=== PATIENT | female | born 1975 | race Caucasian/White ===

== ENCOUNTER 2016-04-28 13:22 | Inpatient (IN) | payer MEDICAID ==
[~2016-04-28] VITALS: Ht 154.9 cm; Wt 51.3 kg
[~2016-04-28 13:22] MED LIST: ATOR10TA PO; AZIT500T5 PO; FAMO20TA41 PO; LAM25 PO; P20 PO; PHEN100C4 PO
[2016-04-28] MEDS ORDERED: LORAZEPAM 2MG/ML CPJ ONE (13:33)
[2016-04-28] MEDS ORDERED: LORAZEPAM 2MG/ML CPJ IV ONE ×3 (14:15→17:00)
[2016-04-28 14:37] LABS: BASOPHILS % 0.6 % (0.0-2.0); EOSINOPHILS % 2.1 % (0.0-5.0); HEMATOCRIT. 33.2 % (36.0-48.0); LYMPHOCYTES % 17.5 % (20.0-50.0); MEAN CORPUSCULAR HEMOGLOBIN 29.3 pg (28.0-32.0); MEAN CORPUSCULAR HGB CONC 33.1 g/dL (31.0-37.0); MEAN CORPUSCULAR VOLUME 88.6 fL (81.0-99.0); MEAN PLATELET VOLUME 8.6 fl (7.4-10.4); NEUTROPHILS % 72.8 % (40.0-76.0); PLATELET 210 x1000/uL (130-400); RED BLOOD CELL COUNT 3.75 mill/uL (4.2-5.4); RED CELL DISTRIBUTION WIDTH 14.2 % (11.6-14.6); WHITE BLOOD COUNT 9.5 x1000/uL (4.5-11.0)
[2016-04-28 14:38] LABS: CHLORIDE 110 mEq/L (98-107)
[2016-04-28 14:47] LABS: ALANINE AMINOTRANSFERASE 22 IU/L (13-61); ALBUMIN 3.5 g/dL (3.4-5.0); ANION GAP 11; CARBON DIOXIDE 25 mEq/L (21-32); ETHANOL BLOOD < 10 mg/dL; INDEX HEMOLYSI 1 (1-3); INDEX ICTERIC 1 (1-4); INDEX LIPEMIC 1 (1-3); UREA NITROGEN BLOOD 13 mg/dL (7-21); eGFR > 60 mL/min (>60)
[2016-04-28 14:48] LABS: PHENYTOIN < 0.4 ug/mL (10-20)
[2016-04-28 16:43] LABS: CLARITY URINE CLEAR (CLEAR); COLOR URINE YELLOW (YELLOW); GLUCOSE URINE NEGATIVE (NEGATIVE); KETONES URINE NEGATIVE (NEGATIVE); LEUKOCYTE ESTERASE URINE NEGATIVE (NEGATIVE); NITRITE URINE NEGATIVE (NEGATIVE); OCCULT BLOOD URINE NEGATIVE (NEGATIVE); PROTEIN URINE NEGATIVE (NEGATIVE); UROBILINOGEN URINE 0.2 E.U./dL (0.2-1.0)
[2016-04-28] MEDS ORDERED: LEVETIRACETAM 500MG PREMIX 100 ML IV ONE ×2 (17:45→18:00)
[2016-04-28] MEDS ORDERED: KCL 20MEQ/100ML PREMIX 100 ML IV ONE (18:15)
[2016-04-28] MEDS ORDERED: MAGNESIUM/ALUMINUM HYDROXIDE/SIMETHICONE 30ML UDC PO PRN (19:00)
[2016-04-28] MEDS ORDERED: ACETAMINOPHEN 325MG TABLET PO PRN (19:00)
[2016-04-28] MEDS ORDERED: PHENYTOIN SODIUM 1,000 MG in SODIUM CHLORIDE 0.9% 100 ML IV ONE (19:00)
[2016-04-28] MEDS ORDERED: CLONIDINE 0.1MG TABLET PO PRN (19:00)
[2016-04-28] MEDS ORDERED: ONDANSETRON HCL 4MG/2ML VIAL IV PRN (19:00)
[2016-04-28] MEDS ORDERED: IPRATROPIUM/ALBUTEROL 0.5-3(2.5)MG/3ML NEB INH PRN (19:00)
[2016-04-28 19:07] LABS: *BARBITURATES SCREEN URINE NEGATIVE (NEGATIVE); *COCAINE SCREEN URINE NEGATIVE (NEGATIVE); CANNABINOID URINE SCREEN NEGATIVE (NEGATIVE); ECSTASY MDMA SCREEN URINE NEGATIVE (NEGATIVE); METHADONE URINE SCREEN NEGATIVE (NEGATIVE); OPIATES URINE SCREEN NEGATIVE (NEGATIVE); PHENCYCLIDINE URINE SCREEN NEGATIVE (NEGATIVE)
[2016-04-28 19:08] LABS: *AMPHETAMINES SCREEN URINE NEGATIVE (NEGATIVE)
[2016-04-28] MEDS ORDERED: LORAZEPAM 2MG/ML CPJ IV PRN (19:30)
[2016-04-28 19:37] LABS: *BENZODIAZEPINES SCREEN URINE PRESUMTIVE POSITIVE (NEGATIVE)
[2016-04-28 19:59] LABS: CHLORIDE 111 mEq/L (98-107); INDEX HEMOLYSI 1 (1-3); INDEX ICTERIC 1 (1-4); INDEX LIPEMIC 1 (1-3)
[2016-04-28 20:04] LABS: ANION GAP 12; CALCIUM 8.1 mg/dL (8.5-10.1); CARBON DIOXIDE 22 mEq/L (21-32); UREA NITROGEN BLOOD 12 mg/dL (7-21); eGFR > 60 mL/min (>60)
[2016-04-28 21:45] VITALS: BP 99/75
[2016-04-28 22:00] VITALS: BP 99/75
[2016-04-28 22:56] LABS: UCG SCREEN NEGATIVE
[2016-04-28] MEDS: LAMOTRIGINE 150MG TABLET PO SCH (23:07)
[2016-04-28] MEDS: PHENYTOIN SODIUM EXTENDED 100MG CAPSULE PO SCH (23:07)
[2016-04-28] MEDS: LEVETIRACETAM 500MG/5ML CUP PO SCH (23:07)
[2016-04-28] MEDS ORDERED: CLOP75TA33 PO (23:33)
[2016-04-28] MEDS ORDERED: LEVE1000 PO (23:33)
[2016-04-29] VITALS: BP 103/80
[2016-04-29 00:15] LABS: CREATINE KINASE 99 IU/L (26-192); CREATINE KINASE MB FRACTION 0.9 ng/mL (0.5-3.6); INDEX HEMOLYSI 1 (1-3); TROPONIN I < 0.02 ng/mL (0.00-0.04)
[2016-04-29 04:00] VITALS: BP 110/76
[2016-04-29 04:51] LABS: BASOPHILS % 0.5 % (0.0-2.0); EOSINOPHILS % 3.8 % (0.0-5.0); HEMATOCRIT. 33.6 % (36.0-48.0); HEMOGLOBIN. 11.2 g/dL (12.0-16.0); LYMPHOCYTES % 24.4 % (20.0-50.0); MEAN CORPUSCULAR HEMOGLOBIN 29.6 pg (28.0-32.0); MEAN CORPUSCULAR HGB CONC 33.3 g/dL (31.0-37.0); MEAN CORPUSCULAR VOLUME 88.8 fL (81.0-99.0); MEAN PLATELET VOLUME 8.7 fl (7.4-10.4); MONOCYTES % 7.3 % (2.0-8.0); PLATELET 227 x1000/uL (130-400); RED BLOOD CELL COUNT 3.78 mill/uL (4.2-5.4); RED CELL DISTRIBUTION WIDTH 14.3 % (11.6-14.6); WHITE BLOOD COUNT 8.3 x1000/uL (4.5-11.0)
[2016-04-29] MEDS: PHENYTOIN SODIUM EXTENDED 100MG CAPSULE PO SCH (05:42)
[2016-04-29 06:40] LABS: CREATINE KINASE 77 IU/L (26-192); CREATINE KINASE MB FRACTION < 0.5 ng/mL (0.5-3.6); INDEX HEMOLYSI 1 (1-3); INDEX ICTERIC 1 (1-4); INDEX LIPEMIC 1 (1-3); PHENYTOIN 1.6 ug/mL (10-20); TRIGLYCERIDE 106 mg/dL (0-150); TROPONIN I < 0.02 ng/mL (0.00-0.04)
[2016-04-29 06:52] LABS: HDL CHOLESTEROL 52 mg/dL (40-59); LDL CHOLESTEROL 76 mg/dL (5-100); THYROID STIMULATING HORMONE 0.88 uIU/mL (0.36-3.74)
[2016-04-29 08:00] VITALS: BP 94/64
[2016-04-29] MEDS: LEVETIRACETAM 500MG/5ML CUP PO SCH (09:11)
[2016-04-29] MEDS: LAMOTRIGINE 150MG TABLET PO SCH (09:11)
[2016-04-29 12:00] VITALS: BP 102/74
[2016-04-29 14:18] VITALS: BP 102/74
== END 2016-04-29 15:20 | disposition home or self-care (01) | DRG 53 ==
LOC: ER 13:27 → 5WST 17:52
PROVIDERS: ADMIT Internal Medicine; ATTEND Internal Medicine
DX: G40.901 Epilepsy, unspecified, not intractable, with status epilepticus (principal); G93.40 Encephalopathy, unspecified; E78.5 Hyperlipidemia, unspecified; D64.9 Anemia, unspecified; E87.6 Hypokalemia; J45.909 Unspecified asthma, uncomplicated; Z88.0 Allergy status to penicillin; Z86.73 Personal history of transient ischemic attack (TIA), and cerebral infarction without residual deficits
CPT/HCPCS: 36415; 70450; 80048; 80053; 80061; 80185; 80305; 81003; 81025; 82550; 82553; 84443; 84484; 85025; 87040; 93005; 93970; G0482; J1165; J1953; J2060; J3480; J7050

== ENCOUNTER 2016-07-21 12:59 | Emergency (ER) | payer MEDICAID ==
[~2016-07-21] VITALS: Ht 154.9 cm; Wt 54.0 kg
[~2016-07-21 12:59] MED LIST changes: +CLOP75TA33 PO; +LEVE1000 PO
[2016-07-21] MEDS ORDERED: IBUPROFEN 600MG TABLET PO ONE (16:00)
[2016-07-21 16:17] VITALS: BP 112/70
== END 2016-07-21 18:38 | disposition home or self-care (01) ==
LOC: ER 15:46
DX: M25.571 Pain in right ankle and joints of right foot (principal); M25.561 Pain in right knee; Z88.0 Allergy status to penicillin; Z79.899 Other long term (current) drug therapy; J45.909 Unspecified asthma, uncomplicated; W18.39XA Other fall on same level, initial encounter; Y93.89 Activity, other specified; Y99.9 Unspecified external cause status; Y92.89 Other specified places as the place of occurrence of the external cause
CPT/HCPCS: 73562; 73610; 73630; 81025; 99284; Z7610

== ENCOUNTER 2016-09-17 23:36 | Inpatient (IN) | payer MEDICARE, OTHER ==
[~2016-09-17] VITALS: Ht 152.4 cm; Wt 59.1 kg
[2016-09-18] MEDS ORDERED: SODIUM CHLORIDE 0.9% 1,000 ML IV ONE (00:29)
[2016-09-18] MEDS ORDERED: ONDANSETRON HCL 4MG/2ML VIAL IV STA (00:29)
[2016-09-18] MEDS ORDERED: LEVETIRACETAM 500MG PREMIX 100 ML IV ONE (00:30)
[2016-09-18] MEDS ORDERED: LORAZEPAM 2MG/ML CPJ IV ONE (00:30)
[2016-09-18 01:14] LABS: CHLORIDE 106 mEq/L (98-107)
[2016-09-18 01:16] LABS: PROTHROMBIN TIME 10.5 sec
[2016-09-18 01:23] LABS: CARBON DIOXIDE 25 mEq/L (21-32)
[2016-09-18 01:24] LABS: BASOPHILS % 0.5 % (0.0-2.0); EOSINOPHILS % 1.7 % (0.0-5.0); HEMATOCRIT. 35.2 % (36.0-48.0); HEMOGLOBIN. 11.7 g/dL (12.0-16.0); LYMPHOCYTES % 25.4 % (20.0-50.0); MEAN CORPUSCULAR VOLUME 86.9 fL (81.0-99.0); MEAN PLATELET VOLUME 8.8 fl (7.4-10.4); MONOCYTES % 8.6 % (2.0-8.0); NEUTROPHILS % 63.8 % (40.0-76.0); PLATELET 234 x1000/uL (130-400); RED BLOOD CELL COUNT 4.05 mill/uL (4.2-5.4); RED CELL DISTRIBUTION WIDTH 15.1 % (11.6-14.6)
[2016-09-18 08:00] VITALS: BP 92/59
[2016-09-18 09:20] VITALS: BP 92/59
[2016-09-18] MEDS ORDERED: ACETAMINOPHEN 325MG TABLET PO PRN (09:30)
[2016-09-18] MEDS ORDERED: HYDROCODONE/ACETAMINOPHEN 5/325MG TABLET PO PRN (09:30)
[2016-09-18] MEDS: CLOPIDOGREL 75MG TABLET PO SCH (10:33)
[2016-09-18] MEDS: LAMOTRIGINE 25MG TABLET PO SCH ×2 (10:34→16:31)
[2016-09-18] MEDS: FAMOTIDINE 20MG TABLET PO SCH (10:34)
[2016-09-18] MEDS: LEVETIRACETAM 500MG TABLET PO SCH ×2 (10:34→16:32)
[2016-09-18 12:00] VITALS: BP 103/72
[2016-09-18] MEDS ORDERED: LORAZEPAM 2MG/ML CPJ ONE (12:54)
[2016-09-18] MEDS ORDERED: LORAZEPAM 2MG/ML CPJ IV NR (13:00)
[2016-09-18] MEDS ORDERED: PHENYTOIN SODIUM 1,000 MG in SODIUM CHLORIDE 0.9% 100 ML IV NR (13:00)
[2016-09-18] MEDS: PHENYTOIN SODIUM EXTENDED 100MG CAPSULE PO SCH ×2 (13:00→16:32)
[2016-09-18] MEDS ORDERED: ACETAMINOPHEN 650MG/20.3ML UDC PO PRN (15:15)
[2016-09-18 16:00] VITALS: BP 90/69
[2016-09-18 20:00] VITALS: BP 86/57
[2016-09-18] MEDS: ATORVASTATIN CALCIUM 10MG TABLET PO SCH (20:21)
[2016-09-18 20:30] VITALS: BP 91/58
[2016-09-18] MEDS: LORAZEPAM 2MG/ML CPJ IV PRN (21:28)
[2016-09-19] VITALS (7 sets, daily range): BP systolic 79–103; BP diastolic 47–82
[2016-09-19 05:46] LABS: BASOPHILS % 0.5 % (0.0-2.0); EOSINOPHILS % 3.5 % (0.0-5.0); HEMATOCRIT. 34.3 % (36.0-48.0); HEMOGLOBIN. 11.4 g/dL (12.0-16.0); LYMPHOCYTES % 27.2 % (20.0-50.0); MEAN CORPUSCULAR HEMOGLOBIN 28.9 pg (28.0-32.0); MEAN CORPUSCULAR VOLUME 86.9 fL (81.0-99.0); MONOCYTES % 8.2 % (2.0-8.0); NEUTROPHILS % 60.6 % (40.0-76.0); PLATELET 232 x1000/uL (130-400); RED BLOOD CELL COUNT 3.95 mill/uL (4.2-5.4); RED CELL DISTRIBUTION WIDTH 15.2 % (11.6-14.6)
[2016-09-19 06:12] LABS: CARBON DIOXIDE 26 mEq/L (21-32); CHLORIDE 103 mEq/L (98-107); T4 FREE 0.84 ng/dL (0.76-1.46)
[2016-09-19] MEDS: FAMOTIDINE 20MG TABLET PO SCH (08:19)
[2016-09-19] MEDS: LEVETIRACETAM 500MG TABLET PO SCH ×2 (08:19→16:20)
[2016-09-19] MEDS: LAMOTRIGINE 25MG TABLET PO SCH ×3 (08:19→17:00)
[2016-09-19] MEDS: LORAZEPAM 2MG/ML CPJ IV PRN ×3 (08:19→19:49)
[2016-09-19] MEDS: CLOPIDOGREL 75MG TABLET PO SCH (08:20)
[2016-09-19] MEDS ORDERED: PHENYTOIN SODIUM 1,000 MG in SODIUM CHLORIDE 0.9% 100 ML IV NR (17:15)
[2016-09-19] MEDS ORDERED: CALCIUM GLUCONATE 1,000 MG in DEXT 5% WATER 90 ML IV NR (18:00)
[2016-09-19] MEDS: ATORVASTATIN CALCIUM 10MG TABLET PO SCH (20:53)
[2016-09-20] VITALS (47 sets, daily range): BP systolic 57–131; BP diastolic 26–90
[2016-09-20 05:49] LABS: CARBON DIOXIDE 28 mEq/L (21-32); CHLORIDE 103 mEq/L (98-107)
[2016-09-20] MEDS: LORAZEPAM 2MG/ML CPJ IV PRN ×3 (08:10→14:29)
[2016-09-20] MEDS: LEVETIRACETAM 500MG TABLET PO SCH ×2 (09:02→17:09)
[2016-09-20] MEDS: FAMOTIDINE 20MG TABLET PO SCH (09:03)
[2016-09-20] MEDS: CLOPIDOGREL 75MG TABLET PO SCH (09:03)
[2016-09-20] MEDS: LAMOTRIGINE 25MG TABLET PO SCH ×2 (10:10→17:09)
[2016-09-20] MEDS ORDERED: GADOBENATE DIMEGLUMINE 529 MG/ML 10ML IV ONE (10:57)
[2016-09-20] MEDS ORDERED: LORAZEPAM 2MG/ML CPJ IV NR (13:30)
[2016-09-20] MEDS ORDERED: DEXT 5%/0.45% NACL 500 ML IV NR (13:45)
[2016-09-20] MEDS: DEXT 5%/0.45% NACL 1000ML 1,000 ML IV SCH (13:47)
[2016-09-20] MEDS: VALPROATE SODIUM 500 MG in SODIUM CHLORIDE 0.9% 100 ML IV SCH (18:55)
[2016-09-20] MEDS: ATORVASTATIN CALCIUM 10MG TABLET PO SCH (22:51)
[2016-09-21] VITALS (43 sets, daily range): BP systolic 73–122; BP diastolic 42–96
[2016-09-21] MEDS: DEXT 5%/0.45% NACL 1000ML 1,000 ML IV SCH ×2 (05:16→17:37)
[2016-09-21] MEDS: VALPROATE SODIUM 500 MG in SODIUM CHLORIDE 0.9% 100 ML IV SCH (05:21)
[2016-09-21] MEDS: CLOPIDOGREL 75MG TABLET PO SCH (08:24)
[2016-09-21] MEDS: LEVETIRACETAM 500MG TABLET PO SCH ×2 (08:24→17:37)
[2016-09-21] MEDS: LAMOTRIGINE 25MG TABLET PO SCH ×2 (08:24→17:38)
[2016-09-21] MEDS: FAMOTIDINE 20MG TABLET PO SCH (08:24)
[2016-09-21] MEDS: DIVALPROEX SODIUM 500MG DR TABLET PO SCH (20:31)
[2016-09-21] MEDS: ATORVASTATIN CALCIUM 10MG TABLET PO SCH (20:31)
[2016-09-22] VITALS (13 sets, daily range): BP systolic 80–125; BP diastolic 42–78
[2016-09-22] MEDS: ONDANSETRON HCL 4MG/2ML VIAL IV PRN ×2 (03:26→16:03)
[2016-09-22] MEDS: DEXT 5%/0.45% NACL 1000ML 1,000 ML IV SCH ×2 (06:34→18:14)
[2016-09-22] MEDS: FAMOTIDINE 20MG TABLET PO SCH (09:29)
[2016-09-22] MEDS: LEVETIRACETAM 500MG TABLET PO SCH ×2 (09:29→17:00)
[2016-09-22] MEDS: CLOPIDOGREL 75MG TABLET PO SCH (09:30)
[2016-09-22] MEDS: LAMOTRIGINE 25MG TABLET PO SCH ×2 (09:30→17:00)
[2016-09-22] MEDS: DIVALPROEX SODIUM 500MG DR TABLET PO SCH ×2 (14:18→20:41)
[2016-09-22] MEDS ORDERED: LEVETIRACETAM 500MG TABLET PO NR (20:21)
[2016-09-22] MEDS ORDERED: LAMOTRIGINE 25MG TABLET PO NR (20:21)
[2016-09-22] MEDS: ATORVASTATIN CALCIUM 10MG TABLET PO SCH (20:41)
[2016-09-23] VITALS (11 sets, daily range): BP systolic 81–97; BP diastolic 43–62
[2016-09-23] MEDS: ONDANSETRON HCL 4MG/2ML VIAL IV PRN ×2 (04:41→16:09)
[2016-09-23] MEDS: DEXT 5%/0.45% NACL 1000ML 1,000 ML IV SCH ×2 (07:08→23:12)
[2016-09-23] MEDS: FAMOTIDINE 20MG TABLET PO SCH (08:23)
[2016-09-23] MEDS: DIVALPROEX SODIUM 500MG DR TABLET PO SCH ×2 (08:23→21:13)
[2016-09-23] MEDS: CLOPIDOGREL 75MG TABLET PO SCH (08:23)
[2016-09-23] MEDS: LEVETIRACETAM 500MG TABLET PO SCH ×2 (08:24→16:51)
[2016-09-23] MEDS: LAMOTRIGINE 25MG TABLET PO SCH ×2 (08:25→16:52)
[2016-09-23] MEDS: ATORVASTATIN CALCIUM 10MG TABLET PO SCH (21:13)
[2016-09-23] MEDS ORDERED: DIPHENHYDRAMINE 25MG CAPSULE PO PRN (22:15)
[2016-09-23] MEDS ORDERED: POLYVINYL ALCOHOL OPHTH DROPS 15ML BOTHEYE PRN (22:15)
[2016-09-24] VITALS: BP 93/57
[2016-09-24 04:00] VITALS: BP 89/57
[2016-09-24 08:00] VITALS: BP 95/62
[2016-09-24] MEDS: DIVALPROEX SODIUM 500MG DR TABLET PO SCH (08:21)
[2016-09-24] MEDS: FAMOTIDINE 20MG TABLET PO SCH (08:21)
[2016-09-24] MEDS: LEVETIRACETAM 500MG TABLET PO SCH ×2 (08:22→16:47)
[2016-09-24] MEDS: CLOPIDOGREL 75MG TABLET PO SCH (08:22)
[2016-09-24] MEDS: LAMOTRIGINE 25MG TABLET PO SCH ×2 (10:53→16:48)
[2016-09-24] MEDS: ONDANSETRON HCL 4MG/2ML VIAL IV PRN (11:01)
[2016-09-24] MEDS: DEXT 5%/0.45% NACL 1000ML 1,000 ML IV SCH (11:39)
[2016-09-24 12:00] VITALS: BP 100/55
[2016-09-24 12:36] VITALS: BP 101/64
[2016-09-24 16:00] VITALS: BP 101/64
== END 2016-09-24 19:00 | disposition home or self-care (01) | DRG 101 ==
LOC: ER 23:36 → 5WST 09-18 04:22 → EDBEDREQ 09-18 04:25 → ENRESERV 09-18 06:35 → MICUNO 09-19 23:03 → 5EST 09-22 03:00 → 6EST 09-23 18:42
PROVIDERS: ADMIT Internal Medicine; ATTEND Internal Medicine
DX: G40.401 Other generalized epilepsy and epileptic syndromes, not intractable, with status epilepticus (principal); E78.5 Hyperlipidemia, unspecified; F41.9 Anxiety disorder, unspecified; H54.7 Unspecified visual loss; I10 Essential (primary) hypertension; I95.9 Hypotension, unspecified; Z88.0 Allergy status to penicillin; Z79.2 Long term (current) use of antibiotics; I69.398 Other sequelae of cerebral infarction; I69.351 Hemiplegia and hemiparesis following cerebral infarction affecting right dominant side; Z79.899 Other long term (current) drug therapy
CPT/HCPCS: 36415; 70450; 70553; 71010; 72125; 80053; 80185; 81025; 82542; 84439; 84443; 85025; 85610; 93005; 93970; 96365; 96375; 99291; A6261; A9577; C1893; J0610; J1165; J1953; J2060; J2405; J3490; J7030; J7042; J7050; J7060; Q0163

== ENCOUNTER 2016-09-27 17:14 | Emergency (ER) | payer MEDICARE, OTHER ==
[~2016-09-27] VITALS: Ht 149.9 cm; Wt 40.0 kg
[~2016-09-27 17:14] MED LIST changes: +GADOBENATE DIMEGLUMINE 529 MG/ML 10ML IV ONE
[2016-09-27] MEDS ORDERED: IBUPROFEN 600MG TABLET PO STA (18:34)
[2016-09-27 19:36] LABS: BASOPHILS % 0.2 % (0.0-2.0); HEMATOCRIT. 36.8 % (36.0-48.0); HEMOGLOBIN. 12.2 g/dL (12.0-16.0); LYMPHOCYTES % 24.3 % (20.0-50.0); MEAN CORPUSCULAR HEMOGLOBIN 28.8 pg (28.0-32.0); MEAN CORPUSCULAR VOLUME 87.3 fL (81.0-99.0); MEAN PLATELET VOLUME 8.4 fl (7.4-10.4); MONOCYTES % 6.2 % (2.0-8.0); NEUTROPHILS % 67.3 % (40.0-76.0); PLATELET 239 x1000/uL (130-400); RED BLOOD CELL COUNT 4.22 mill/uL (4.2-5.4); RED CELL DISTRIBUTION WIDTH 14.9 % (11.6-14.6)
[2016-09-27 19:54] LABS: CARBON DIOXIDE 27 mEq/L (21-32); CHLORIDE 104 mEq/L (98-107)
[2016-09-27 20:01] LABS: CLARITY URINE CLOUDY (CLEAR); COLOR URINE YELLOW (YELLOW); GLUCOSE URINE NEGATIVE (NEGATIVE); KETONES URINE 1+ (NEGATIVE); LEUKOCYTE ESTERASE URINE 1+ (NEGATIVE); NITRITE URINE NEGATIVE (NEGATIVE); OCCULT BLOOD URINE NEGATIVE (NEGATIVE); PH URINE 5.5 (4.5-8.0); PROTEIN URINE NEGATIVE (NEGATIVE); SPECIFIC GRAVITY URINE 1.026 (1.005-1.030); UROBILINOGEN URINE 0.2 E.U./dL (0.2-1.0)
[2016-09-27 20:19] LABS: *AMPHETAMINES SCREEN URINE NEGATIVE (NEGATIVE); *BARBITURATES SCREEN URINE NEGATIVE (NEGATIVE); *BENZODIAZEPINES SCREEN URINE NEGATIVE (NEGATIVE); *COCAINE SCREEN URINE NEGATIVE (NEGATIVE); CANNABINOID URINE SCREEN NEGATIVE (NEGATIVE); METHADONE URINE SCREEN NEGATIVE (NEGATIVE); OPIATES URINE SCREEN NEGATIVE (NEGATIVE); PHENCYCLIDINE URINE SCREEN NEGATIVE (NEGATIVE)
[2016-09-27 22:43] VITALS: BP 114/73
== END 2016-09-27 23:12 | disposition home or self-care (01) ==
LOC: ER 17:43
DX: G40.909 Epilepsy, unspecified, not intractable, without status epilepticus (principal); R42 Dizziness and giddiness; H54.0 Blindness, both eyes; Z88.0 Allergy status to penicillin; Z79.899 Other long term (current) drug therapy
CPT/HCPCS: 36415; 70450; 70553; 80053; 80305; 81001; 81025; 85025; 85610; 93005; 99285; A9577

== ENCOUNTER 2017-06-18 14:48 | Emergency (ER) | payer MEDICARE, OTHER ==
[~2017-06-18] VITALS: Ht 162.6 cm; Wt 54.5 kg
[~2017-06-18 14:48] MED LIST changes: -AZIT500T5 PO; -GADOBENATE DIMEGLUMINE 529 MG/ML 10ML IV ONE; +LEVE250T2 PO; -P20 PO
[2017-06-18] MEDS ORDERED: SODIUM CHLORIDE 0.9% 1,000 ML IV ONE (15:00)
[2017-06-18] MEDS ORDERED: LEVETIRACETAM 500MG PREMIX 100 ML IV ONE (15:00)
[2017-06-18 15:47] LABS: BASOPHILS % 0.8 % (0.0-2.0); EOSINOPHILS % 1.5 % (0.0-5.0); HEMATOCRIT. 34.5 % (36.0-48.0); HEMOGLOBIN. 11.8 g/dL (12.0-16.0); LYMPHOCYTES % 24.9 % (20.0-50.0); MEAN CORPUSCULAR HEMOGLOBIN 30.8 pg (28.0-32.0); MEAN CORPUSCULAR VOLUME 90.1 fL (81.0-99.0); MEAN PLATELET VOLUME 8.5 fl (7.4-10.4); MONOCYTES % 7.6 % (2.0-8.0); NEUTROPHILS % 65.2 % (40.0-76.0); PLATELET 240 x1000/uL (130-400); RED BLOOD CELL COUNT 3.83 mill/uL (4.2-5.4); RED CELL DISTRIBUTION WIDTH 13.9 % (11.6-14.6)
[2017-06-18 15:48] LABS: CHLORIDE 111 mEq/L (98-107)
[2017-06-18 15:52] LABS: ETHANOL BLOOD < 10 mg/dL
[2017-06-18 16:01] LABS: CLARITY URINE CLEAR (CLEAR); COLOR URINE YELLOW (YELLOW); KETONES URINE NEGATIVE (NEGATIVE); LEUKOCYTE ESTERASE URINE NEGATIVE (NEGATIVE); NITRITE URINE NEGATIVE (NEGATIVE); OCCULT BLOOD URINE NEGATIVE (NEGATIVE); PROTEIN URINE NEGATIVE (NEGATIVE); SPECIFIC GRAVITY URINE 1.018 (1.005-1.030); UROBILINOGEN URINE 0.2 E.U./dL (0.2-1.0)
[2017-06-18 16:08] LABS: HCG SCREEN NEGATIVE
[2017-06-18] MEDS ORDERED: PHENYTOIN SODIUM 1,000 MG in SODIUM CHLORIDE 0.9% 100 ML IV ONE (16:15)
[2017-06-18 16:48] LABS: *AMPHETAMINES SCREEN URINE NEGATIVE (NEGATIVE); *BARBITURATES SCREEN URINE NEGATIVE (NEGATIVE); *COCAINE SCREEN URINE NEGATIVE (NEGATIVE); METHADONE URINE SCREEN NEGATIVE (NEGATIVE); OPIATES URINE SCREEN NEGATIVE (NEGATIVE)
[2017-06-18 16:49] LABS: CANNABINOID URINE SCREEN NEGATIVE (NEGATIVE); PHENCYCLIDINE URINE SCREEN NEGATIVE (NEGATIVE)
[2017-06-18 16:50] LABS: *BENZODIAZEPINES SCREEN URINE PRESUMTIVE POSITIVE (NEGATIVE)
[2017-06-18 17:15] VITALS: BP 116/62
[2017-06-18] MEDS ORDERED: PHENYTOIN SODIUM EXTENDED 100MG CAPSULE PO ONE (17:30)
== END 2017-06-18 17:33 | disposition home or self-care (01) ==
LOC: ER 14:53
DX: R56.9 Unspecified convulsions (principal); Z88.0 Allergy status to penicillin
CPT/HCPCS: 36415; 70450; 71045; 80053; 80185; 80305; 81003; 84703; 85025; 93005; 96365; 99285; G0482; J1165; J1953; J7030; J7050

== ENCOUNTER 2018-02-26 22:11 | Inpatient (IN) | payer MEDICARE, OTHER ==
[~2018-02-26] VITALS: Ht 162.6 cm; Wt 59.5 kg
[2018-02-26] MEDS ORDERED: LORAZEPAM 2MG/ML CPJ ONE (22:24)
[2018-02-26] MEDS ORDERED: SODIUM CHLORIDE 0.9% 1,000 ML IV ONE (22:28)
[2018-02-26] MEDS ORDERED: MAGNESIUM 4 G PREMIX 100 ML IV ONE (22:30)
[2018-02-26] MEDS ORDERED: LORAZEPAM 2MG/ML CPJ IV ONE ×4 (22:30→23:30)
[2018-02-26] MEDS ORDERED: PHENOBARBITAL SODIUM 130MG/ML 1ML IV SCH (22:30)
[2018-02-26] MEDS ORDERED: LEVETIRACETAM 500MG PREMIX 100 ML IV ONE ×2 (22:45)
[2018-02-26] MEDS ORDERED: PHENYTOIN SODIUM 1000MG in SODIUM CHLORIDE 0.9% 100ML IV ONE (22:45)
[2018-02-26 23:07] LABS: CLARITY URINE CLOUDY (CLEAR); COLOR URINE YELLOW (YELLOW); KETONES URINE TRACE (NEGATIVE); LEUKOCYTE ESTERASE URINE NEGATIVE (NEGATIVE); NITRITE URINE NEGATIVE (NEGATIVE); OCCULT BLOOD URINE 2+ (NEGATIVE); PROTEIN URINE NEGATIVE (NEGATIVE); UROBILINOGEN URINE 0.2 E.U./dL (0.2-1.0)
[2018-02-26 23:23] LABS: *AMPHETAMINES SCREEN URINE NEGATIVE (NEGATIVE)
[2018-02-26 23:24] LABS: *BARBITURATES SCREEN URINE NEGATIVE (NEGATIVE); *COCAINE SCREEN URINE NEGATIVE (NEGATIVE); CANNABINOID URINE SCREEN NEGATIVE (NEGATIVE); METHADONE URINE SCREEN NEGATIVE (NEGATIVE); OPIATES URINE SCREEN NEGATIVE (NEGATIVE); PHENCYCLIDINE URINE SCREEN NEGATIVE (NEGATIVE)
[2018-02-26 23:27] LABS: *BENZODIAZEPINES SCREEN URINE PRESUMTIVE POSITIVE (NEGATIVE)
[2018-02-26 23:48] LABS: BASOPHILS % 0.5 % (0.0-2.0); EOSINOPHILS % 2.7 % (0.0-5.0); HEMATOCRIT. 35.6 % (36.0-48.0); HEMOGLOBIN. 11.9 g/dL (12.0-16.0); LYMPHOCYTES % 19.5 % (20.0-50.0); MEAN CORPUSCULAR HEMOGLOBIN 30.5 pg (28.0-32.0); MEAN CORPUSCULAR VOLUME 91.4 fL (81.0-99.0); MEAN PLATELET VOLUME 8.6 fl (7.4-10.4); MONOCYTES % 10.5 % (2.0-8.0); NEUTROPHILS % 66.8 % (40.0-76.0); PLATELET 242 x1000/uL (130-400); RED BLOOD CELL COUNT 3.89 mill/uL (4.2-5.4); RED CELL DISTRIBUTION WIDTH 13.4 % (11.6-14.6)
[2018-02-26 23:59] LABS: CHLORIDE 104 mEq/L (98-107)
[2018-02-27] VITALS (8 sets, daily range): BP systolic 84–104; BP diastolic 52–74
[2018-02-27 00:01] LABS: ETHANOL BLOOD < 10 mg/dL
[2018-02-27 00:05] LABS: CREATINE KINASE 75 IU/L (26-192)
[2018-02-27 00:08] LABS: B-HCG QUANTITATIVE < 1 mIU/mL (<3)
[2018-02-27] MEDS: SODIUM CHLORIDE 0.9% 1,000 ML IV SCH ×2 (01:40→11:41)
[2018-02-27] MEDS ORDERED: MAGNESIUM/ALUMINUM HYDROXIDE/SIMETHICONE 30ML UDC PO PRN (01:45)
[2018-02-27] MEDS ORDERED: CLONIDINE 0.1MG TABLET PO PRN (01:45)
[2018-02-27] MEDS ORDERED: LEVETIRACETAM 1,000 MG in SODIUM CHLORIDE 0.9% 100 ML IV SCH ×2 (01:45→12:00)
[2018-02-27] MEDS ORDERED: LORAZEPAM 2MG/ML CPJ IV PRN (01:45)
[2018-02-27] MEDS ORDERED: DIPHENHYDRAMINE 50MG/ML VIAL IV PRN (01:45)
[2018-02-27] MEDS ORDERED: ACETAMINOPHEN 325MG TABLET PO PRN (01:45)
[2018-02-27] MEDS ORDERED: LORAZEPAM 2MG/ML CPJ IV ONE ×2 (04:45→06:45)
[2018-02-27] MEDS ORDERED: MAGNESIUM 4 G PREMIX 100 ML IV ONE (04:45)
[2018-02-27] MEDS ORDERED: PHENYTOIN SODIUM EXTENDED 100MG CAPSULE PO SCH (06:00)
[2018-02-27] MEDS ORDERED: CALCIUM GLUCONATE 100MG/ML 10ML VIAL IV ONE (07:00)
[2018-02-27] MEDS ORDERED: FUROSEMIDE 40MG/4ML VIAL IVP ONE (07:00)
[2018-02-27] MEDS ORDERED: SODIUM CHLORIDE 0.9% 1,000 ML IV ONE (07:00)
[2018-02-27] MEDS ORDERED: SODIUM CHLORIDE 0.9% IV SCH (07:30)
[2018-02-27] MEDS ORDERED: PHENOBARBITAL IV SCH (07:30)
[2018-02-27] MEDS ORDERED: LAMOTRIGINE 100MG TABLET PO SCH ×2 (09:00→10:00)
[2018-02-27] MEDS ORDERED: POTASSIUM CHLORIDE 20MEQ TABLET SR PO NR (15:45)
[2018-02-27] MEDS: LORAZEPAM 2MG/ML CPJ IV PRN (17:14)
[2018-02-27] MEDS: LEVETIRACETAM 1,250 MG in SODIUM CHLORIDE 0.9% 100 ML IV SCH (20:44)
[2018-02-27] MEDS: PHENYTOIN SODIUM EXTENDED 100MG CAPSULE PO SCH (20:45)
[2018-02-28] VITALS (11 sets, daily range): BP systolic 84–121; BP diastolic 48–84
[2018-02-28] MEDS: LEVETIRACETAM 1,250 MG in SODIUM CHLORIDE 0.9% 100 ML IV SCH ×2 (09:05→21:11)
[2018-02-28] MEDS: SODIUM CHLORIDE 0.9% 1,000 ML IV SCH ×2 (09:06→17:40)
[2018-02-28] MEDS: PHENYTOIN SODIUM EXTENDED 100MG CAPSULE PO SCH (21:11)
[2018-03-01] VITALS (10 sets, daily range): BP systolic 83–140; BP diastolic 57–84
[2018-03-01] MEDS: LEVETIRACETAM 1,250 MG in SODIUM CHLORIDE 0.9% 100 ML IV SCH (08:52)
[2018-03-01] MEDS: LORAZEPAM 2MG/ML CPJ IV PRN (11:07)
== END 2018-03-01 17:45 | disposition home or self-care (01) | DRG 101 ==
LOC: ER 22:11 → EDBEDREQSVC 02-27 00:51 → ENRESERV 02-27 07:27 → 5EST 02-27 09:41
PROVIDERS: ADMIT Internal Medicine; ATTEND Internal Medicine
PROC: 4A10X4Z Monitoring of Central Nervous Electrical Activity, External Approach (ICD-10-PCS; principal; 2018-03-01)
DX: G40.901 Epilepsy, unspecified, not intractable, with status epilepticus (principal); F32.9 Major depressive disorder, single episode, unspecified; F41.9 Anxiety disorder, unspecified; Z86.73 Personal history of transient ischemic attack (TIA), and cerebral infarction without residual deficits; H54.7 Unspecified visual loss; Z88.9 Allergy status to unspecified drugs, medicaments and biological substances; Z88.0 Allergy status to penicillin
CPT/HCPCS: 36415; 70551; 71045; 76830; 76856; 80051; 80185; 80305; 82140; 82542; 82550; 82962; 83735; 84443; 84702; 93005; 99285; G0482; J0610; J1165; J1940; J1953; J2060; J2560; J3475; J7030; J7050